=== PATIENT | female | born 2000 | race Caucasian/White ===

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

== ENCOUNTER 2018-02-12 19:37 | Emergency (ER) | payer SELFPAY ==
[~2018-02-12] VITALS: Ht 12.7 cm; Wt 43.5 kg
[~2018-02-12 19:37] MED LIST: AMOXICILLIN500 M1 PO; ROBITUSSIN AC (10 M1 PO
[2018-02-12 19:57] VITALS: Ht 12.7 cm; Wt 43.5 kg
[2018-02-12 20:29] LABS: APPEARANCE CLEAR (CLEAR); BILIRUBIN NEGATIVE (NEGATIVE); COLOR STRAW (YELLOW); GLUCOSE NEGATIVE (NEGATIVE); KETONE NEGATIVE (NEGATIVE); NITRITE NEGATIVE (NEGATIVE); PROTEIN NEGATIVE (NEGATIVE); SPECIFIC GRAVITY 1.015 (1.005-1.020); UROBILINOGEN NORMAL (NORMAL)
[2018-02-12 20:35] LABS: UDS - AMPHET NEGATIVE QUAL (NEGATIVE); UDS - BARB NEGATIVE QUAL (NEGATIVE); UDS - BENZO NEGATIVE QUAL (NEGATIVE); UDS - COCAINE NEGATIVE QUAL (NEGATIVE); UDS - OPIATE NEGATIVE QUAL (NEGATIVE); UDS - PCP NEGATIVE QUAL (NEGATIVE); UDS - THC POSITIVE QUAL (NEGATIVE)
[2018-02-12 20:42] LABS: BASOPHILS 0.2 % (0-2); EOSINOPHILS 1.4 % (0-7); HEMATOCRIT 37.3 % (36.0-48.0); HEMOGLOBIN 12.7 g/dL (12-16); IMMATURE GRANULOCYTES 0.2 % (0-5); LYMPHOCYTES 20.7 % (15-50); MCH 30.8 pg (26.0-34.0); MCV 90.5 fL (80.0-100.0); MEAN PLATELET VOLUME 9.7 fL (7.4-10.4); MONOCYTES 9.2 % (2-11); NEUTROPHILS 68.3 % (40-80); PLATELET COUNT 254 10x3/uL (130-400); RBC 4.12 10x6/uL (4.00-5.40); RDW 13.5 % (11.5-14.5); WBC 10.8 10x3/uL (4.8-10.8)
[2018-02-12 21:00] LABS: HCG SERUM POSITIVE (NEGATIVE)
[2018-02-12 21:08] LABS: ALBUMIN 3.8 g/dL (3.4-5.0); ALKALINE PHOSPHATASE 106 U/L (46-116); ALT (SGPT) 17 U/L (10-68); BILIRUBIN - TOTAL 0.19 mg/dL (0.2-1.3); CALC OSMOLALITY 277 mosm/kg (275-300); CALCIUM 8.9 mg/dL (8.5-10.1); CHLORIDE - SERUM 106 mmol/L (98-107); CREATININE - SERUM 0.6 mg/dL (0.6-1.3); GLUCOSE 88 mg/dL (74-106); POTASSIUM - SERUM 3.8 mmol/L (3.5-5.1); PROTEIN - SERUM 7.9 g/dL (6.4-8.2); SODIUM 141 mmol/L (136-145); UREA NITROGEN 6 mg/dL (7-18); eGFR NON AFRICAN AMERICAN > 90 mL/min (90-120)
[2018-02-12 21:33] VITALS: BP 119/68
== END 2018-02-12 21:33 | disposition home or self-care (01) ==
LOC: D.ER 19:37
PROVIDERS: Family Medicine
DX: O26.891 Other specified pregnancy related conditions, first trimester (principal); Z3A.00 Weeks of gestation of pregnancy not specified; R10.30 Lower abdominal pain, unspecified; F17.200 Nicotine dependence, unspecified, uncomplicated; F12.90 Cannabis use, unspecified, uncomplicated

== ENCOUNTER → 2018-07-23 07:33 | Outpatient (CLI) | payer SELFPAY ==
[2018-07-23 08:26] LABS: APPEARANCE HAZY (CLEAR); COLOR YELLOW (YELLOW)
[2018-07-23 08:27] LABS: BACTERIA MODERATE /hpf (NONE SEEN); BILIRUBIN NEGATIVE (NEGATIVE); EPITHELIAL CELLS 0-5 /hpf (0-5); GLUCOSE NEGATIVE (NEGATIVE); KETONE NEGATIVE (NEGATIVE); MUCUS <1+ /lpf (NONE SEEN); NITRITE NEGATIVE (NEGATIVE); PROTEIN TRACE mg/dL (NEGATIVE); RED CELLS - URINE 0-5 /hpf (0-5); UROBILINOGEN NORMAL (NORMAL); WHITE CELLS - URINE OCC /hpf (0-5)
[2018-07-23 08:35] LABS: CALCIUM OXALATE CRYSTALS 0-5 /hpf (NONE SEEN)
== END | disposition home or self-care (01) ==
LOC: D.LDO 07:33
PROVIDERS: ATTEND Obstetrics & Gynecology
DX: O26.893 Other specified pregnancy related conditions, third trimester (principal); Z3A.27 27 weeks gestation of pregnancy; R10.9 Unspecified abdominal pain

== ENCOUNTER 2018-10-06 01:22 | Emergency (ER) | payer SELFPAY ==
[~2018-10-06] VITALS: Ht 165.1 cm; Wt 46.4 kg
[2018-10-06 01:33] VITALS: Ht 165.1 cm; Wt 46.4 kg
[2018-10-06 01:58] LABS: BASOPHILS 0.1 % (0-2); EOSINOPHILS 0.8 % (0-7); HEMOGLOBIN 13.2 g/dL (12-16); IMMATURE GRANULOCYTES 0.2 % (0-5); LYMPHOCYTES 20.3 % (15-50); MCH 30.9 pg (26.0-34.0); MCHC 33.8 g/dL (31.0-37.0); MCV 91.3 fL (80.0-100.0); MEAN PLATELET VOLUME 8.8 fL (7.4-10.4); MONOCYTES 7.3 % (2-11); NEUTROPHILS 71.3 % (40-80); RBC 4.27 10x6/uL (4.00-5.40); RDW 13.6 % (11.5-14.5); WBC 8.7 10x3/uL (4.8-10.8)
[2018-10-06 02:01] LABS: PLATELET COUNT 478 10x3/uL (130-400)
[2018-10-06 02:11] LABS: ALBUMIN 3.7 g/dL (3.4-5.0); ALKALINE PHOSPHATASE 135 U/L (46-116); ALT (SGPT) 41 U/L (10-68); BILIRUBIN - TOTAL 0.39 mg/dL (0.2-1.3); CALC OSMOLALITY 277 mosm/kg (275-300); CALCIUM 9.6 mg/dL (8.5-10.1); CARBON DIOXIDE 25.2 mmol/L (21.0-32.0); CHLORIDE - SERUM 102 mmol/L (98-107); CREATININE - SERUM 0.7 mg/dL (0.6-1.3); GLUCOSE 115 mg/dL (74-106); POTASSIUM - SERUM 3.4 mmol/L (3.5-5.1); PROTEIN - SERUM 8.7 g/dL (6.4-8.2); SODIUM 140 mmol/L (136-145); UREA NITROGEN 7 mg/dL (7-18); eGFR NON AFRICAN AMERICAN > 90 mL/min (90-120)
[2018-10-06 03:09] LABS: APPEARANCE CLEAR (CLEAR); COLOR YELLOW (YELLOW); SPECIFIC GRAVITY 1.015 (1.005-1.020)
[2018-10-06 03:10] LABS: BILIRUBIN NEGATIVE (NEGATIVE); GLUCOSE NEGATIVE (NEGATIVE); KETONE MODERATE mg/dL (NEGATIVE); NITRITE NEGATIVE (NEGATIVE); PROTEIN NEGATIVE (NEGATIVE); RED CELLS - URINE RARE /hpf (0-5); UROBILINOGEN NORMAL (NORMAL)
[2018-10-06] MEDS ORDERED: MACROBID100 MG PO (03:24)
[2018-10-06 03:35] VITALS: BP 109/82
[2018-10-06 03:41] LABS: T4 THYROXIN - FREE 1.65 ng/dL (0.76-1.46); T4 THYROXINE 17.6 ug/dL (4.7-13.3)
== END 2018-10-06 03:35 | disposition home or self-care (01) ==
LOC: D.ER 01:22
PROVIDERS: Emergency Medicine
DX: R20.2 Paresthesia of skin (principal); E04.9 Nontoxic goiter, unspecified; N39.0 Urinary tract infection, site not specified

== ENCOUNTER 2018-10-17 22:57 | Emergency (ER) | payer SELFPAY ==
[~2018-10-17] VITALS: Ht 165.1 cm; Wt 46.3 kg
[~2018-10-17 22:57] MED LIST changes: +MACROBID100 MG PO
[2018-10-17 23:00] VITALS: BP 123/82; Ht 165.1 cm; Wt 46.3 kg
[2018-10-17] MEDS ORDERED: ROBAXIN500 MG PO (23:16)
[2018-10-18 00:08] LABS: APPEARANCE CLEAR (CLEAR); BILIRUBIN NEGATIVE (NEGATIVE); COLOR YELLOW (YELLOW); GLUCOSE NEGATIVE (NEGATIVE); KETONE SMALL mg/dL (NEGATIVE); NITRITE NEGATIVE (NEGATIVE); PROTEIN NEGATIVE (NEGATIVE); UROBILINOGEN NORMAL (NORMAL)
[2018-10-18 00:13] LABS: BACTERIA NONE SEEN /hpf (NONE SEEN); EPITHELIAL CELLS 0-5 /hpf (0-5); RED CELLS - URINE 0-5 /hpf (0-5); WHITE CELLS - URINE 0-5 /hpf (0-5)
== END 2018-10-18 00:32 | disposition home or self-care (01) ==
LOC: D.ER 22:57
PROVIDERS: Family Medicine
DX: R07.81 Pleurodynia (principal)

== ENCOUNTER 2018-11-04 20:29 | Emergency (ER) | payer SELFPAY ==
[~2018-11-04] VITALS: Ht 165.1 cm; Wt 49.9 kg
[~2018-11-04 20:29] MED LIST changes: +ROBAXIN500 MG PO
[2018-11-04 20:45] VITALS: Ht 165.1 cm; Wt 49.9 kg
[2018-11-04] MEDS ORDERED: DOXYCYCLINE HY100 M2 PO (22:32)
[2018-11-04 22:56] VITALS: BP 112/71
== END 2018-11-04 22:57 | disposition home or self-care (01) ==
LOC: D.ER 20:29
DX: N76.2 Acute vulvitis (principal)

== ENCOUNTER 2018-11-07 19:18 | Emergency (ER) | payer MEDICAID ==
[~2018-11-07] VITALS: Ht 165.1 cm; Wt 50.0 kg
[~2018-11-07 19:18] MED LIST changes: +DOXYCYCLINE HY100 M2 PO
[2018-11-07 19:46] VITALS: Ht 165.1 cm; Wt 50.0 kg
[2018-11-07 20:33] LABS: BASOPHILS 0.1 % (0-2); HEMATOCRIT 38.4 % (36.0-48.0); HEMOGLOBIN 12.9 g/dL (12-16); IMMATURE GRANULOCYTES 0.2 % (0-5); LYMPHOCYTES 19.5 % (15-50); MCH 29.9 pg (26.0-34.0); MCHC 33.6 g/dL (31.0-37.0); MCV 88.9 fL (80.0-100.0); MEAN PLATELET VOLUME 9.4 fL (7.4-10.4); MONOCYTES 7.6 % (2-11); NEUTROPHILS 71.6 % (40-80); RBC 4.32 10x6/uL (4.00-5.40); RDW 13.5 % (11.5-14.5); WBC 9.4 10x3/uL (4.8-10.8)
[2018-11-07 20:39] LABS: PLATELET COUNT 346 10x3/uL (130-400)
[2018-11-07 20:41] LABS: APTT 29.3 SECONDS (22.8-39.4); INR 1.13 (0.85-1.17)
[2018-11-07 20:51] LABS: ALKALINE PHOSPHATASE 94 U/L (46-116); ALT (SGPT) 38 U/L (10-68); BILIRUBIN - TOTAL 0.57 mg/dL (0.2-1.3); CALC OSMOLALITY 281 mosm/kg (275-300); CALCIUM 9.1 mg/dL (8.5-10.1); CARBON DIOXIDE 24.5 mmol/L (21.0-32.0); CHLORIDE - SERUM 105 mmol/L (98-107); CREATININE - SERUM 0.9 mg/dL (0.6-1.3); GLUCOSE 95 mg/dL (74-106); POTASSIUM - SERUM 3.4 mmol/L (3.5-5.1); SODIUM 142 mmol/L (136-145); UREA NITROGEN 9 mg/dL (7-18); eGFR NON AFRICAN AMERICAN 85 mL/min (90-120)
[2018-11-07 21:15] LABS: CKMB 0.3 U/L (0.0-3.6); CREATINE KINASE 35 UL (21-215); MAGNESIUM - SERUM 1.9 mg/dL (1.8-2.4); TROPONIN-I < 0.017 ng/mL (0.000-0.060)
[2018-11-07 21:31] LABS: T4 THYROXIN - FREE 1.47 ng/dL (0.76-1.46); T4 THYROXINE 11.4 ug/dL (4.7-13.3); THYROID STIMULATING HORMONE 1.02 uIU/mL (0.36-3.74)
[2018-11-07] MEDS ORDERED: LOPRESSOR25 MG PO (21:49)
[2018-11-07 23:00] VITALS: BP 116/68
== END 2018-11-07 22:26 | disposition home or self-care (01) ==
LOC: D.ER 19:18
PROVIDERS: Emergency Medicine
DX: R00.2 Palpitations (principal); R00.0 Tachycardia, unspecified

== ENCOUNTER 2018-11-13 23:56 | Emergency (ER) | payer MEDICAID ==
[~2018-11-13] VITALS: Ht 165.1 cm; Wt 50.0 kg
[~2018-11-13 23:56] MED LIST changes: +LOPRESSOR25 MG PO
[2018-11-14 00:08] VITALS: Ht 165.1 cm; Wt 50.0 kg
[2018-11-14 01:19] LABS: BASOPHILS 0 % (0-2); EOSINOPHILS 1.6 % (0-7); HEMATOCRIT 39.4 % (36.0-48.0); HEMOGLOBIN 13.4 g/dL (12-16); IMMATURE GRANULOCYTES 0.2 % (0-5); LYMPHOCYTES 26.3 % (15-50); MCH 30.2 pg (26.0-34.0); MCV 88.7 fL (80.0-100.0); MEAN PLATELET VOLUME 9.8 fL (7.4-10.4); NEUTROPHILS 63.9 % (40-80); PLATELET COUNT 371 10x3/uL (130-400); RBC 4.44 10x6/uL (4.00-5.40); RDW 13.6 % (11.5-14.5); WBC 9.3 10x3/uL (4.8-10.8)
[2018-11-14 01:26] LABS: ALKALINE PHOSPHATASE 93 U/L (46-116); ALT (SGPT) 34 U/L (10-68); BILIRUBIN - TOTAL 0.29 mg/dL (0.2-1.3); CALC OSMOLALITY 280 mosm/kg (275-300); CALCIUM 8.9 mg/dL (8.5-10.1); CARBON DIOXIDE 25.6 mmol/L (21.0-32.0); CHLORIDE - SERUM 106 mmol/L (98-107); CREATININE - SERUM 0.8 mg/dL (0.6-1.3); GLUCOSE 91 mg/dL (74-106); POTASSIUM - SERUM 3.4 mmol/L (3.5-5.1); PROTEIN - SERUM 8.3 g/dL (6.4-8.2); SODIUM 142 mmol/L (136-145); UREA NITROGEN 7 mg/dL (7-18); eGFR NON AFRICAN AMERICAN > 90 mL/min (90-120)
[2018-11-14 01:29] LABS: APPEARANCE CLEAR (CLEAR); BILIRUBIN NEGATIVE (NEGATIVE); COLOR STRAW (YELLOW); GLUCOSE NEGATIVE (NEGATIVE); HCG URINE NEGATIVE (NEGATIVE); KETONE NEGATIVE (NEGATIVE); NITRITE NEGATIVE (NEGATIVE); PROTEIN NEGATIVE (NEGATIVE); SPECIFIC GRAVITY 1.005 (1.005-1.020); UROBILINOGEN NORMAL (NORMAL)
[2018-11-14 01:31] LABS: AMYLASE - SERUM 85 U/L (25-115); LIPASE 198 U/L (73-393); TROPONIN-I < 0.017 ng/mL (0.000-0.060)
[2018-11-14 01:32] LABS: BACTERIA FEW /hpf (NONE SEEN); EPITHELIAL CELLS 0-5 /hpf (0-5); RED CELLS - URINE NONE SEEN /hpf (0-5); WHITE CELLS - URINE 0-5 /hpf (0-5)
[2018-11-14] MEDS ORDERED: SORBITOL4000 ML PO (01:54)
[2018-11-14] MEDS ORDERED: DULCOLAX5 MG PO (01:54)
[2018-11-14 02:25] VITALS: BP 123/74
== END 2018-11-14 02:25 | disposition home or self-care (01) ==
LOC: D.ER 23:56
PROVIDERS: Emergency Medicine
DX: K59.00 Constipation, unspecified (principal); R14.3 Flatulence; R14.2 Eructation

== ENCOUNTER 2018-11-26 02:27 | Emergency (ER) | payer MEDICAID ==
[~2018-11-26] VITALS: Ht 165.1 cm; Wt 49.9 kg
[~2018-11-26 02:27] MED LIST changes: +DULCOLAX5 MG PO; +SORBITOL4000 ML PO
[2018-11-26 02:35] VITALS: Ht 165.1 cm; Wt 49.9 kg
[2018-11-26 03:32] LABS: BASOPHILS 0.1 % (0-2); EOSINOPHILS 2.8 % (0-7); HEMATOCRIT 35.5 % (36.0-48.0); HEMOGLOBIN 11.9 g/dL (12-16); IMMATURE GRANULOCYTES 0.1 % (0-5); LYMPHOCYTES 28.7 % (15-50); MCH 29.6 pg (26.0-34.0); MCHC 33.5 g/dL (31.0-37.0); MCV 88.3 fL (80.0-100.0); MEAN PLATELET VOLUME 9.7 fL (7.4-10.4); MONOCYTES 8.7 % (2-11); NEUTROPHILS 59.6 % (40-80); RBC 4.02 10x6/uL (4.00-5.40); RDW 13.4 % (11.5-14.5); WBC 7.6 10x3/uL (4.8-10.8)
[2018-11-26 03:34] LABS: PLATELET COUNT 289 10x3/uL (130-400)
[2018-11-26 04:26] VITALS: BP 127/77
== END 2018-11-26 04:26 | disposition home or self-care (01) ==
LOC: D.ER 02:27
PROVIDERS: Emergency Medicine
DX: N93.9 Abnormal uterine and vaginal bleeding, unspecified (principal); R00.0 Tachycardia, unspecified; D64.9 Anemia, unspecified

== ENCOUNTER 2019-01-28 00:28 | Emergency (ER) | payer MEDICAID ==
[~2019-01-28] VITALS: Ht 165.1 cm; Wt 54.5 kg
[2019-01-28 00:40] VITALS: Ht 165.1 cm; Wt 54.5 kg
[2019-01-28 01:34] LABS: BASOPHILS 0.2 % (0-2); EOSINOPHILS 1.1 % (0-7); HEMATOCRIT 38.4 % (36.0-48.0); HEMOGLOBIN 12.7 g/dL (12-16); IMMATURE GRANULOCYTES 0.2 % (0-5); LYMPHOCYTES 20.7 % (15-50); MCH 29.1 pg (26.0-34.0); MCHC 33.1 g/dL (31.0-37.0); MCV 88.1 fL (80.0-100.0); MEAN PLATELET VOLUME 9.7 fL (7.4-10.4); MONOCYTES 9.6 % (2-11); NEUTROPHILS 68.2 % (40-80); PLATELET COUNT 326 10x3/uL (130-400); RBC 4.36 10x6/uL (4.00-5.40); RDW 14.1 % (11.5-14.5); WBC 10.8 10x3/uL (4.8-10.8)
[2019-01-28 01:54] LABS: ALBUMIN 3.7 g/dL (3.4-5.0); ALKALINE PHOSPHATASE 98 U/L (46-116); ALT (SGPT) 22 U/L (10-68); BILIRUBIN - TOTAL 0.18 mg/dL (0.2-1.3); CALC OSMOLALITY 281 mosm/kg (275-300); CALCIUM 8.9 mg/dL (8.5-10.1); CARBON DIOXIDE 27.5 mmol/L (21.0-32.0); CHLORIDE - SERUM 107 mmol/L (98-107); CREATININE - SERUM 0.8 mg/dL (0.6-1.3); GLUCOSE 103 mg/dL (74-106); POTASSIUM - SERUM 3.8 mmol/L (3.5-5.1); PROTEIN - SERUM 7.8 g/dL (6.4-8.2); SODIUM 142 mmol/L (136-145); UREA NITROGEN 9 mg/dL (7-18); eGFR NON AFRICAN AMERICAN > 90 mL/min (90-120)
[2019-01-28 01:56] LABS: TROPONIN-I < 0.017 ng/mL (0.000-0.060)
[2019-01-28 02:19] LABS: MAGNESIUM - SERUM 1.9 mg/dL (1.8-2.4); PRO BNP 68 pg/mL (0-125); THYROID STIMULATING HORMONE 2.13 uIU/mL (0.36-3.74)
[2019-01-28 02:53] LABS: UDS - AMPHET NEGATIVE QUAL (NEGATIVE); UDS - BARB NEGATIVE QUAL (NEGATIVE); UDS - BENZO NEGATIVE QUAL (NEGATIVE); UDS - COCAINE NEGATIVE QUAL (NEGATIVE); UDS - OPIATE NEGATIVE QUAL (NEGATIVE); UDS - PCP NEGATIVE QUAL (NEGATIVE); UDS - THC NEGATIVE QUAL (NEGATIVE)
[2019-01-28 03:05] LABS: HCG URINE NEGATIVE (NEGATIVE)
[2019-01-28 03:08] LABS: APPEARANCE CLEAR (CLEAR); BILIRUBIN NEGATIVE (NEGATIVE); COLOR YELLOW (YELLOW); GLUCOSE NEGATIVE (NEGATIVE); KETONE NEGATIVE (NEGATIVE); NITRITE NEGATIVE (NEGATIVE); PROTEIN NEGATIVE (NEGATIVE); UROBILINOGEN NORMAL (NORMAL)
[2019-01-28 03:09] LABS: BACTERIA FEW /hpf (NEGATIVE); EPITHELIAL CELLS 0-5 /hpf (0-5); RED CELLS - URINE 0-5 /hpf (0-5); WHITE CELLS - URINE NSEEN /hpf (NEGATIVE)
[2019-01-28 03:15] VITALS: BP 135/85
== END 2019-01-28 03:15 | disposition home or self-care (01) ==
LOC: D.ER 00:28
PROVIDERS: Family Medicine
DX: R00.0 Tachycardia, unspecified (principal); F17.210 Nicotine dependence, cigarettes, uncomplicated

== ENCOUNTER 2019-03-16 01:15 | Emergency (ER) | payer MEDICAID ==
[~2019-03-16] VITALS: Ht 165.1 cm; Wt 43.5 kg
[2019-03-16 01:34] VITALS: Ht 165.1 cm; Wt 43.5 kg
[2019-03-16 03:32] VITALS: BP 122/70
== END 2019-03-16 03:33 | disposition home or self-care (01) ==
LOC: D.ER 01:15
DX: R59.1 Generalized enlarged lymph nodes (principal)

== ENCOUNTER 2019-11-28 23:08 | Emergency (ER) | payer MEDICAID ==
[~2019-11-28] VITALS: Ht 165.1 cm; Wt 49.9 kg
[~2019-11-28 23:08] MED LIST changes: +TAMIFLU75 MG PO
[2019-11-28 23:09] VITALS: Ht 165.1 cm; Wt 49.9 kg
[2019-11-28 23:38] LABS: BILIRUBIN NEGATIVE (NEGATIVE); GLUCOSE NEGATIVE (NEGATIVE); KETONE NEGATIVE (NEGATIVE); NITRITE NEGATIVE (NEGATIVE); UROBILINOGEN NORMAL (NORMAL)
[2019-11-28 23:40] LABS: BACTERIA FEW /hpf (NEGATIVE); EPITHELIAL CELLS 0-5 /hpf (0-5); RED CELLS - URINE 0-5 /hpf (0-5); WHITE CELLS - URINE NSEEN /hpf (NEGATIVE)
[2019-11-28 23:59] LABS: HEMATOCRIT 37.1 % (36.0-48.0); HEMOGLOBIN 12.2 g/dL (12-16); LYMPHOCYTES 20.9 % (15-50); MCHC 32.9 g/dL (31.0-37.0); MCV 91.2 fL (80.0-100.0); MEAN PLATELET VOLUME 9.8 fL (7.4-10.4); NEUTROPHILS 71.5 % (40-80); RBC 4.07 10x6/uL (4.00-5.40); WBC 9.1 10x3/uL (4.8-10.8)
[2019-11-29 00:02] LABS: PLATELET COUNT 238 10x3/uL (130-400)
[2019-11-29 00:05] LABS: CALC OSMOLALITY 278 mosm/kg (275-300); CALCIUM 8.3 mg/dL (8.5-10.1); CARBON DIOXIDE 28.5 mmol/L (21.0-32.0); CHLORIDE - SERUM 107 mmol/L (98-107); CREATININE - SERUM 0.8 mg/dL (0.6-1.3); GLUCOSE 96 mg/dL (74-106); POTASSIUM - SERUM 3.4 mmol/L (3.5-5.1); SODIUM 141 mmol/L (136-145); UREA NITROGEN 8 mg/dL (7-18); eGFR NON AFRICAN AMERICAN > 90 mL/min (90-120)
[2019-11-29 00:11] LABS: HCG URINE POSITIVE (NEGATIVE)
[2019-11-29 00:14] LABS: ALBUMIN 3.7 g/dL (3.4-5.0); ALKALINE PHOSPHATASE 106 U/L (30-120); ALT (SGPT) 13 U/L (10-68); BILIRUBIN - TOTAL 0.32 mg/dL (0.2-1.3); PROTEIN - SERUM 7.5 g/dL (6.4-8.2)
[2019-11-29 03:45] VITALS: BP 117/64
== END 2019-11-29 03:45 | disposition home or self-care (01) ==
LOC: D.ER 23:08
PROVIDERS: Family Medicine
DX: R82.71 Bacteriuria (principal); R10.30 Lower abdominal pain, unspecified; E87.6 Hypokalemia

== ENCOUNTER 2019-12-03 03:06 | Observation (INO) | payer MEDICAID ==
[~2019-12-03] VITALS: Ht 170.2 cm; Wt 43.2 kg
[2019-12-03] VITALS (12 sets, daily range): BP systolic 106–130; BP diastolic 52–73; Ht 170.2 cm; Wt 43.2 kg
[2019-12-03] MEDS ORDERED: ABILIFY2 MG PO (03:13)
[2019-12-03] MEDS ORDERED: ZOLOFT100 MG PO (03:13)
--- NOTE | 2019-12-03 03:24 | NUR ---
TO ULTRASOUND VIA WHEELCHAIR
[2019-12-03 04:48] LABS: BASOPHILS 0.1 % (0-2); EOSINOPHILS 1.5 % (0-7); HEMATOCRIT 34.1 % (36.0-48.0); HEMOGLOBIN 11.5 g/dL (12-16); IMMATURE GRANULOCYTES 0.3 % (0-5); LYMPHOCYTES 23.7 % (15-50); MCH 30.4 pg (26.0-34.0); MCHC 33.7 g/dL (31.0-37.0); MCV 90.2 fL (80.0-100.0); MEAN PLATELET VOLUME 9.8 fL (7.4-10.4); MONOCYTES 11.2 % (2-11); NEUTROPHILS 63.2 % (40-80); PLATELET COUNT 220 10x3/uL (130-400); RBC 3.78 10x6/uL (4.00-5.40); RDW 13.2 % (11.5-14.5); WBC 9.2 10x3/uL (4.8-10.8)
[2019-12-03 04:51] LABS: BILIRUBIN NEGATIVE (NEGATIVE); GLUCOSE NEGATIVE (NEGATIVE); KETONE NEGATIVE (NEGATIVE); NITRITE NEGATIVE (NEGATIVE); UROBILINOGEN NORMAL (NORMAL)
[2019-12-03 04:52] LABS: BACTERIA NONE SEEN /hpf (NEGATIVE); EPITHELIAL CELLS 0-5 /hpf (0-5); RED CELLS - URINE 0-5 /hpf (0-5); WHITE CELLS - URINE 0-5 /hpf (NEGATIVE)
[2019-12-03 05:03] LABS: CALC OSMOLALITY 278 mosm/kg (275-300); CALCIUM 7.9 mg/dL (8.5-10.1); CARBON DIOXIDE 26.2 mmol/L (21.0-32.0); CHLORIDE - SERUM 108 mmol/L (98-107); CREATININE - SERUM 0.8 mg/dL (0.6-1.3); GLUCOSE 93 mg/dL (74-106); POTASSIUM - SERUM 3.7 mmol/L (3.5-5.1); SODIUM 141 mmol/L (136-145); UREA NITROGEN 8 mg/dL (7-18); eGFR NON AFRICAN AMERICAN > 90 mL/min (90-120)
[2019-12-03 05:08] LABS: APTT 33.4 SECONDS (22.8-39.4); INR 1.05 (0.85-1.17); PROTIME 13.7 SECONDS (11.6-15.0)
[2019-12-03 05:14] LABS: ALBUMIN 3.3 g/dL (3.4-5.0); ALKALINE PHOSPHATASE 99 U/L (30-120); ALT (SGPT) 13 U/L (10-68); BILIRUBIN - TOTAL 0.17 mg/dL (0.2-1.3); HCG - QUANTITATIVE (MATERNAL) 370 mIU/mL; PROTEIN - SERUM 6.8 g/dL (6.4-8.2)
--- NOTE | 2019-12-03 06:42 | NUR ---
NS INFUSING AT TRANSFER
--- NOTE | 2019-12-03 07:16 | NUR ---
DR. DANIELLE AT BEDSIDE, DISCUSSING POC WITH PT.
--- NOTE | 2019-12-03 07:33 | NUR ---
DR DANIELLE AT BEDSIDE. DISCUSSES POC, INCLUDING PROCEDURE PLANNED. CONSENTS EXPLAINED TO AND SIGNED BY PT. PT VERBALIZES UNDERSTANDING OF ALL CONSENTS.
--- NOTE | 2019-12-03 07:43 | NUR ---
DR. DANIELLE BACK TO BEDSIDE, DISCUSSES MEDICAL, ANESTHESIA, AND BLOOD CONSENTS WITH PT. ANSWERS PT QUESTIONS. CONSENTS SIGNED AND WITNESSED. OR CHECKLIST COMPLETED.
--- NOTE | 2019-12-03 07:49 | NUR ---
OFF UNIT AND TOO OR WITH TRANSPORT.
--- NOTE | 2019-12-03 09:59 | NUR ---
REC'D BACK TO ROOM FROM PACU VIA BED. AA&O X3. REPORTS THAT SHE FEELS DROWSY AND SLEEPY. DENIES PAIN. VSS. BREATH SOUNDS CLEAR AND EQUAL BILATERALLY. NO ROBERTS NOTED, PER REPORT REMOVED IN OR. BOWEL SOUNDS PRESENT AND ACTIVE X4 QUADRANTS. INCISION NOTED TO RLQ, LLQ, AND UMIBILICUS, ALL WELL APPROXIMATED WITH GLUE INTACT, NO DRAINAGE NOTED. WILL CONTINUE TO MONITOR. SCD'S ON BLE. PERICARE DONE, PERIPAD PLACED. INSTRUCTED ON INCENTIVE SPIROMETER USE WITH RETURN DEMO. COUGH AND DEEP BREATHING DONE WITH GOOD EFFORT. ICE PACK PROVIDED. DENIES ADDITIONAL NEEDS. ICE WATER PROVIDED AND ENCOURAGED TO TAKE SMALL SLOW SIPS, VERBALIZES UNDERSTANDING. BED IN LOW POSITION WITH SRUPX2. CALL LIGHT AND PHONE WITHIN REACH. WILL CONTINUE TO MONITOR.
--- NOTE | 2019-12-03 10:16 | NUR ---
ATTEMPTED TO CALL PT'S MOTHER PER HER REQUEST TO TRANSFER CALL TO ROOM, NO ANSWER, PT NOTIFIED.
--- NOTE | 2019-12-03 10:46 | NUR ---
PT OOB AND AMB TO BR. VOIDS 50 ML OF CLOUDY, YELLOW URINE. PERICARE DONE PER PT. SCANT AMT OF PINK DISCHARGE NOTED. PAD AND PANTIES ON. PT AMB BACK TO BED. SCDS ON BLE. PUMP ON. ICE PACK TO INCISIONS. PT ELIEZER ACTIVITY WELL.
--- NOTE | 2019-12-03 12:04 | NUR ---
PRESCRIPTION GIVEN PER PT REQUEST FOR SPOUSE TO TAKE TO HAVE FILLED PRIOR TO D/C.
--- NOTE | 2019-12-03 12:18 | NUR ---
C/O ABD AND INCISIONAL DISCOMFORT. TORADOL GIVEN PER ORDER AND PT REQUEST. EDUCATED ON MED, VERBALIZES UNDERSTANDING. INSTRUCTED ON INCISIONAL CARE POST D/C, VERBALIZES UNDERSTANDING AND DENIES QUESTIONS. BED IN LOW POSITION WITH SRUP X2. CALL LIGHT AND PHONE WITHIN REACH.
--- NOTE | 2019-12-03 12:43 | NUR ---
AMBULATORY TO BR WITH STANDBY ASSIST, VOIDED 100 MLS LIGHT YELLOW URINE. BACK TO BED. LUNCH TRAY PROVIDED. DENIES NAUSEA AND NEEDS. ICE WATER PROVIDED. WILL CONTINUE TO MONITOR.
--- NOTE | 2019-12-03 13:32 | NUR ---
R A/C 20 G PIV REMOVED, TIP INTACT. BANDAID APPLIED. EDUCATED PT ON S/S OF INFECTION AND S/S TO REPORT TO MD FOLLOWING D/C. VERBALIZES UNDERSTANDING. VSS. UP AND VOIDED 200 MLS CLEAR LIGHT YELLOW URINE NOTED.
[2019-12-03] MEDS ORDERED: PERCOCET 5-3251 TAB PO (13:39)
--- NOTE | 2019-12-03 13:59 | NUR ---
VERBAL AND WRITTEN D/C INSTRUCTIONS PROVIDED TO PT. REPORTS THAT SPOUSE DROPPED OFF PERCOCET PRESCRIPTION AT PHARMACY BUT IT WAS NOT READY, REQUESTED TO TAKE PRIOR TO D/C. DR. DANIELLE NOTIFIED AND ORDERS REC'D. MEDICATED PER ORDER AND PT REQUEST. PT INSTRUCTED THAT NEXT PAIN MED COULD BE TAKEN AT 2000 TONIGHT, VERBALIZES UNDERSTANDING. SPOUSE PRESENT FOR D/C TEACHING. BOTH VERBALIZE UNDERSTANDING AND DENY QUESTIONS.
--- NOTE | 2019-12-03 14:05 | NUR ---
OFF UNIT IN W/C WITH THIS RN IS STABLE CONDITION TO AWAITING VECHILE.
== END 2019-12-03 14:05 | disposition home or self-care (01) ==
LOC: D.ER 03:06 → D.LD 06:17 → OBSVTIME 07:08 → D.LD 14:05
PROVIDERS: Family Medicine; ADMIT Student in an Organized Health Care Education/Training Program; ATTEND Student in an Organized Health Care Education/Training Program
DX: O00.90 Unspecified ectopic pregnancy without intrauterine pregnancy (principal); K66.1 Hemoperitoneum; R00.0 Tachycardia, unspecified

== ENCOUNTER 2019-12-10 18:35 | Emergency (ER) | payer MEDICAID ==
[~2019-12-10] VITALS: Ht 170.2 cm; Wt 43.2 kg
[~2019-12-10 18:35] MED LIST changes: +ABILIFY2 MG PO; +PERCOCET 5-3251 TAB PO; +ZOLOFT100 MG PO
[2019-12-10 18:47] VITALS: BP 126/88; Ht 170.2 cm; Wt 43.2 kg
[2019-12-10 19:39] LABS: BASOPHILS 0.1 % (0-2); EOSINOPHILS 0.7 % (0-7); HEMATOCRIT 36.7 % (36.0-48.0); HEMOGLOBIN 12.1 g/dL (12-16); IMMATURE GRANULOCYTES 0.3 % (0-5); LYMPHOCYTES 14.6 % (15-50); MCV 90.8 fL (80.0-100.0); MEAN PLATELET VOLUME 9.3 fL (7.4-10.4); MONOCYTES 6.5 % (2-11); NEUTROPHILS 77.8 % (40-80); RBC 4.04 10x6/uL (4.00-5.40); WBC 10.8 10x3/uL (4.8-10.8)
[2019-12-10 19:47] LABS: PLATELET COUNT 315 10x3/uL (130-400)
[2019-12-10 20:23] LABS: BILIRUBIN NEGATIVE (NEGATIVE); GLUCOSE NEGATIVE (NEGATIVE); KETONE NEGATIVE (NEGATIVE); NITRITE NEGATIVE (NEGATIVE); UROBILINOGEN NORMAL (NORMAL)
[2019-12-10 21:08] LABS: CALC OSMOLALITY 274 mosm/kg (275-300); CALCIUM 9.1 mg/dL (8.5-10.1); CHLORIDE - SERUM 103 mmol/L (98-107); CREATININE - SERUM 0.8 mg/dL (0.6-1.3); GLUCOSE 101 mg/dL (74-106); POTASSIUM - SERUM 3.9 mmol/L (3.5-5.1); SODIUM 138 mmol/L (136-145); UREA NITROGEN 11 mg/dL (7-18); eGFR NON AFRICAN AMERICAN > 90 mL/min (90-120)
[2019-12-10 21:15] LABS: ALBUMIN 4.1 g/dL (3.4-5.0); ALKALINE PHOSPHATASE 101 U/L (30-120); ALT (SGPT) 22 U/L (10-68); BILIRUBIN - TOTAL 0.26 mg/dL (0.2-1.3); PROTEIN - SERUM 8.5 g/dL (6.4-8.2)
== END 2019-12-10 20:48 | disposition left against medical advice (07) ==
LOC: D.ER 18:35
PROVIDERS: Family Medicine
DX: G89.18 Other acute postprocedural pain (principal); R10.30 Lower abdominal pain, unspecified

== ENCOUNTER 2019-12-10 23:12 | Emergency (ER) | payer MEDICAID ==
[~2019-12-10] VITALS: Ht 170.2 cm; Wt 43.2 kg
[2019-12-10 23:31] VITALS: Ht 170.2 cm; Wt 43.2 kg
[2019-12-11] LABS: UDS - AMPHET NEGATIVE QUAL (NEGATIVE); UDS - BARB NEGATIVE QUAL (NEGATIVE); UDS - BENZO NEGATIVE QUAL (NEGATIVE); UDS - COCAINE NEGATIVE QUAL (NEGATIVE); UDS - OPIATE NEGATIVE QUAL (NEGATIVE); UDS - PCP NEGATIVE QUAL (NEGATIVE); UDS - THC NEGATIVE QUAL (NEGATIVE)
[2019-12-11 01:53] VITALS: BP 122/70
== END 2019-12-11 01:53 | disposition home or self-care (01) ==
LOC: D.ER 23:12
PROVIDERS: Family Medicine
DX: G89.18 Other acute postprocedural pain (principal); F41.9 Anxiety disorder, unspecified

== ENCOUNTER 2020-02-04 23:25 | Emergency (ER) | payer MEDICAID ==
[~2020-02-04] VITALS: Ht 170.2 cm; Wt 43.1 kg
[2020-02-04 23:35] VITALS: Ht 170.2 cm; Wt 43.1 kg
[2020-02-05 00:09] LABS: CALC OSMOLALITY 280 mosm/kg (275-300); CALCIUM 8.7 mg/dL (8.5-10.1); CARBON DIOXIDE 24.9 mmol/L (21.0-32.0); CHLORIDE - SERUM 108 mmol/L (98-107); CREATININE - SERUM 0.8 mg/dL (0.6-1.3); GLUCOSE 101 mg/dL (74-106); POTASSIUM - SERUM 3.7 mmol/L (3.5-5.1); SODIUM 142 mmol/L (136-145); UREA NITROGEN 6 mg/dL (7-18); eGFR NON AFRICAN AMERICAN > 90 mL/min (90-120)
[2020-02-05 00:10] LABS: BILIRUBIN NEGATIVE (NEGATIVE); HCG URINE NEGATIVE (NEGATIVE); KETONE NEGATIVE (NEGATIVE); NITRITE NEGATIVE (NEGATIVE); UROBILINOGEN NORMAL mg/dL (< 2)
[2020-02-05 00:15] LABS: BASOPHILS 0.1 % (0-2); EOSINOPHILS 0.9 % (0-7); HEMATOCRIT 39.9 % (36.0-48.0); HEMOGLOBIN 12.8 g/dL (12-16); IMMATURE GRANULOCYTES 0.3 % (0-5); LYMPHOCYTES 29.1 % (15-50); MCH 29.2 pg (26.0-34.0); MCHC 32.1 g/dL (31.0-37.0); MCV 90.9 fL (80.0-100.0); MEAN PLATELET VOLUME 9.9 fL (7.4-10.4); MONOCYTES 7.5 % (2-11); NEUTROPHILS 62.1 % (40-80); PLATELET COUNT 310 10x3/uL (130-400); RBC 4.39 10x6/uL (4.00-5.40); RDW 13.2 % (11.5-14.5); WBC 6.8 10x3/uL (4.8-10.8)
[2020-02-05 00:22] LABS: ALBUMIN 4.2 g/dL (3.4-5.0); ALKALINE PHOSPHATASE 121 U/L (30-120); ALT (SGPT) 13 U/L (10-68); HCG - QUANTITATIVE (MATERNAL) 2 mIU/mL; PROTEIN - SERUM 8.6 g/dL (6.4-8.2)
[2020-02-05 00:39] LABS: UDS - AMPHET NEGATIVE QUAL (NEGATIVE); UDS - BARB NEGATIVE QUAL (NEGATIVE); UDS - BENZO NEGATIVE QUAL (NEGATIVE); UDS - COCAINE NEGATIVE QUAL (NEGATIVE); UDS - OPIATE NEGATIVE QUAL (NEGATIVE); UDS - PCP NEGATIVE QUAL (NEGATIVE); UDS - THC NEGATIVE QUAL (NEGATIVE)
[2020-02-05 00:41] VITALS: BP 129/73
== END 2020-02-05 00:42 | disposition home or self-care (01) ==
LOC: D.ER 23:25
PROVIDERS: Family Medicine
DX: Z71.1 Person with feared health complaint in whom no diagnosis is made (principal)